=== PATIENT | male | born 1970 | race American Indian/Alaskan Native ===

== ENCOUNTER 2020-04-10 12:35 | Emergency (ER) | payer MEDICAID ==
[2020-04-10] MEDS ORDERED: levETIRAcetam 1000 MG/NS 0.75% 1,000 MG/100 ML BAG IV ONE (12:59)
--- NOTE | 2020-04-10 13:10 | Emergency Department Report ---
ED Seizure HPI - General Chief Complaint: Seizure Stated Complaint: SEIZURE Time Seen by Provider: 04/10/20 12:49 Source: patient, EMS Mode of arrival: Stretcher Limitations: No Limitations - History of Present Illness MD Complaint: seizure -: This morning Description of Episode: loss of consciousness, bladder incontinence, bowel incontinence, post-event confusion Trauma: No Seizure History: known seizure disorder (ran out of [facility]), history of non-comp liance Place: home Possible Precipitating Event: none Associated Symptoms: confusion. denies: chest pain, cough, fever/chills, loss of appetite, malaise, rash, syncope, weakness, tongue injury, shoulder dislocation - Related Data Home Medications Medication Instructions Recorded Confirmed Last Taken Atorvastatin Calcium [Lipitor] 80 mg PO DAILY 07/07/19 07/07/19 Unknown Clopidogrel [Plavix] 75 mg PO QDAY 07/07/19 07/07/19 Unknown Lisinopril [Zestril TAB] 2.5 mg PO DAILY 07/07/19 07/07/19 Unknown Metoprolol Velazco/Hydrochlorothiaz 1 tab PO DAILY 07/07/19 07/07/19 Unknown [Metoprolol ER-Hctz 25-12.5 mg] Nitroglycerin [Nitrostat] 0.4 mg SL Q5M PRN 07/07/19 07/07/19 Unknown Previous Rx's Medication Instructions Recorded Last Taken Type Enoxaparin Sodium [Lovenox] 60 mg SQ Q12H 5 Days syringe 07/09/19 Unknown Rx Famotidine [Pepcid] 20 mg PO BID #60 tablet 07/09/19 Unknown Rx Warfarin [Coumadin] 7.5 mg PO QDAY #30 tablet 07/09/19 Unknown Rx levETIRAcetam [Keppra TAB] 500 mg PO BID #60 tablet 04/10/20 Unknown Rx Allergies Allergy/AdvReac Type Severity Reaction Status Date / Time No Known Allergies Allergy Unverified 04/10/20 12:46 ED Review of Systems ROS: Stated complaint: SEIZURE Other details as noted in HPI Comment: All other systems reviewed and negative ED Past Medical Hx - Past Medical History Previous Medical History?: Yes Hx Hypertension: Yes Hx CVA: Yes (L deficits) Hx Heart Attack/AMI: Yes Hx Congestive Heart Failure: No Hx Diabetes: Yes Hx Asthma: No Hx COPD: No - Surgical History Past Surgical History?: Yes Hx Coronary Stent: Yes - Social History Smoking Status: Former Smoker Substance Use Type: None - Medications Home Medications: Home Medications Medication Instructions Recorded Confirmed Last Taken Type Atorvastatin Calcium [Lipitor] 80 mg PO DAILY 07/07/19 07/07/19 Unknown History Clopidogrel [Plavix] 75 mg PO QDAY 07/07/19 07/07/19 Unknown History Lisinopril [Zestril TAB] 2.5 mg PO DAILY 07/07/19 07/07/19 Unknown History Metoprolol Velazco/Hydrochlorothiaz 1 tab PO DAILY 07/07/19 07/07/19 Unknown History [Metoprolol ER-Hctz 25-12.5 mg] Nitroglycerin [Nitrostat] 0.4 mg SL Q5M PRN 07/07/19 07/07/19 Unknown History Enoxaparin Sodium [Lovenox] 60 mg SQ Q12H 5 Days syringe 07/09/19 Unknown Rx Famotidine [Pepcid] 20 mg PO BID #60 tablet 07/09/19 Unknown Rx Warfarin [Coumadin] 7.5 mg PO QDAY #30 tablet 07/09/19 Unknown Rx levETIRAcetam [Keppra TAB] 500 mg PO BID #60 tablet 04/10/20 Unknown Rx ED Physical Exam - General Limitations: No Limitations General appearance: alert, in no apparent distress, postictal - Head Head exam: Present: atraumatic, normocephalic - Eye Eye exam: Present: normal appearance - ENT ENT exam: Present: mucous membranes moist - Neck Neck exam: Present: normal inspection - Respiratory Respiratory exam: Present: normal lung sounds bilaterally. Absent: respiratory distress, wheezes, rales - Cardiovascular Cardiovascular Exam: Present: regular rate, normal rhythm, normal heart sounds. Absent: systolic murmur, diastolic murmur, rubs, gallop - GI/Abdominal GI/Abdominal exam: Present: soft, normal bowel sounds. Absent: distended, tenderness, guarding, rebound - Rectal Rectal exam: Present: deferred - Extremities Exam Extremities exam: Present: normal inspection - Back Exam Back exam: Present: normal inspection - Neurological Exam Neurological exam: Present: alert, oriented X3 - Psychiatric Psychiatric exam: Present: normal affect, normal mood - Skin Skin exam: Present: warm, dry, intact, normal color. Absent: rash ED Course Vital Signs 04/10/20 04/10/20 13:05 13:17 Temperature 98.2 F Pulse Rate 95 H Respiratory 18 18 Rate Blood Pressure 127/85 [Right] O2 Sat by Pulse 98 98 Oximetry ED Medical Decision Making - Lab Data Result diagrams: 04/10/20 13:05 04/10/20 13:05 - Medical Decision Making Patient is a 49-year-old F English male noncompliant with his Keppra. Patient had 2 seizures prior to arrival. Patient was loaded with Keppra. Has been seizure-free since he is arrived. States he had a mild headache and is re questing some aspirin which was given. Patient states he has an appointment to see a neurologist in the next coming weeks. Patient discharged home in stable condition. Critical care attestation.: If time is entered above; I have spent that time in minutes in the direct care of this critically ill patient, excluding procedure time. ED Disposition Clinical Impression: Seizure, Seizure secondary to subtherapeutic anticonvulsant medication, Medical non-compliance Disposition: - TO HOME OR SELFCARE Is pt being admited?: No Does the pt Need Aspirin: No Condition: Stable Instructions: Epilepsy, [id number] Prescriptions: levETIRAcetam [Keppra TAB] 500 mg PO BID #60 tablet Referrals: PRIMARY CARE, [Primary Care Provider] - 3-5 Days Time of Disposition: 14:49
[2020-04-10 13:17] VITALS: BP 127/85
[2020-04-10 13:52] LABS: Blood Urea Nitrogen 10 mg/dL (9-20); Calcium 9.1 mg/dL (8.4-10.2); Hemolysis Index 11
[2020-04-10 14:04] LABS: BUN/Creatinine Ratio 14
[2020-04-10 14:35] LABS: Basophils % (Auto) 0.4 % (0.0-1.8); Eosinophils # (Auto) 0.1 K/mm3 (0.0-0.4); Eosinophils % (Auto) 1.7 % (0.0-4.3); Hematocrit 34.2 % (35.5-45.6); Hemoglobin 10.8 gm/dl (11.8-15.2); Lymphocytes # (Auto) 2.3 K/mm3 (1.2-5.4); Lymphocytes % (Auto) 33.1 % (13.4-35.0); Mean Corpuscular HGB Conc 32 % (32-34); Mean Corpuscular Volume 91 fl (84-94); Monocytes # (Auto) 0.8 K/mm3 (0.0-0.8); Monocytes % (Auto) 11.2 % (0.0-7.3); Platelet Count 357 K/mm3 (140-440); Red Blood Count 3.76 M/mm3 (3.65-5.03); Red Cell Distribution Width 16.4 % (13.2-15.2)
[2020-04-10] MEDS ORDERED: ASPIRIN 325 MG TAB PO ONE (14:47)
== END 2020-04-10 16:32 | disposition home or self-care (01) ==
LOC: ED 12:35
DX: R56.9 Unspecified convulsions (principal); Z91.19 Patient's noncompliance with other medical treatment and regimen; I25.2 Old myocardial infarction; I10 Essential (primary) hypertension; E11.9 Type 2 diabetes mellitus without complications; Z98.890 Other specified postprocedural states; Z87.891 Personal history of nicotine dependence; Z79.899 Other long term (current) drug therapy
CPT/HCPCS: 36415; 80048; 85025; 96374; 99284; J1953